=== PATIENT | female | born 1970 | race Caucasian/White ===

== ENCOUNTER → 2017-10-15 09:21 | Outpatient (CLI) | payer OTHER, SELFPAY ==
[2017-10-15 11:25] LABS: Free T4, Direct Thyroxine 1.87 ng/dL (0.78-2.19)
[2017-10-15 11:38] LABS: Thyroid Stimulating Hormone 0.39 uIU/mL (0.47-4.68)
[2017-10-18 15:38] LABS: Triiodothyronine T3 Total 95 ng/dL (76-181)
== END ==
PROVIDERS: PCP Family Medicine; Visit Provider Physician Assistant
DX: L65.9 Nonscarring hair loss, unspecified (principal)
CPT/HCPCS: 36415; 84439; 84443; 84480

== ENCOUNTER → 2018-04-07 07:01 | Outpatient (CLI) | payer OTHER, SELFPAY ==
[2018-04-07 08:24] LABS: Alanine Aminotransferase 24 IU/L (9-52); Aspartate Aminotransferase 21 IU/L (14-36)
[2018-04-07 09:05] LABS: Thyroid Stimulating Hormone 2.68 uIU/mL (0.47-4.68)
== END ==
PROVIDERS: PCP Family Medicine; Visit Provider Family Medicine
DX: R74.8 Abnormal levels of other serum enzymes (principal); R79.89 Other specified abnormal findings of blood chemistry
CPT/HCPCS: 36415; 84443; 84450; 84460

== ENCOUNTER 2018-10-21 21:53 | Emergency (ER) | payer OTHER, SELFPAY ==
[2018-10-21] VITALS (8 sets, daily range): BP systolic 98–117; BP diastolic 61–86; PULSE 56–86; RESP 12–24; TEMP 36.6; O2SAT 96–100; BMI 32.9
--- NOTE | 2018-10-21 21:55 | DI.RAD.S_ITS ---
PROCEDURE: XR WRIST RT MIN 3V INDICATIONS: fall, pain, obvious deformity TECHNIQUE: 4 views of the wrist were acquired. COMPARISON: None. FINDINGS: Bones: There is a transverse fracture identified involving the distal right radial metaphysis with possible intra-articular extension. Dorsal angulation and mild impaction of the distal fracture fragment is present. There is also an ulnar styloid process fracture. No additional fractures are evident. No suspicious osseous lesions or dislocations are identified. Soft tissues: No suspicious soft tissue calcifications. IMPRESSION: 1. Mildly impacted and dorsally angulated distal right radial metaphyseal fracture. 2. Ulnar styloid process fracture. Dictated by: Nate Reyes M.D. on 10/22/2018 at 6:41 Approved by: Nate Reyes M.D. on 10/22/2018 at 6:43
--- NOTE | 2018-10-21 23:34 | DI.RAD.S_ITS ---
PROCEDURE: XR WRIST RT 2V INDICATIONS: post reduction / splint TECHNIQUE: 2 views of the wrist were acquired. COMPARISON: [facility], CR, XR WRIST RT MIN 3V, 10/21/2018, 22:06. FINDINGS: There continues to be a transverse fracture through the distal radial metaphysis with probable intra-articular extension and mild dorsal angulation of the distal fracture fragment. The ulnar styloid process fracture is unchanged. No new fractures are evident. Interval placement of an overlying cast is noted. No suspicious osseous lesions are evident. The overlying soft tissues are not well evaluated. IMPRESSION: Unchanged alignment of the distal radius and ulna fractures. Dictated by: Nate Reyes M.D. on 10/22/2018 at 6:39 Approved by: Nate Reyes M.D. on 10/22/2018 at 6:41
--- NOTE | 2018-10-21 23:47 | PC.NURSE ---
Cap refill of right hand 3 seconds,same as left hand
[2018-10-21] MEDS: PROPOFOL 200 MG/20 ML VIAL 140 MG IV (23:51)
[2018-10-21] MEDS: HYDROMORPHONE 1 MG INJ 0.5 MG IV (23:56)
[2018-10-22 00:10] VITALS: BP 112/72; PULSE 74; RESP 15; O2SAT 98
[2018-10-22] MEDS: HYDROCODONE/ACET 5/325 PREPACK 1 BOTTLE MISC (00:33)
--- NOTE | 2018-10-22 00:47 | PC.NURSE ---
Provider inspected and approved sugar tong with beckie wrap. cap refill 3 sec equal to left finger cap refill. pos cms.
[2018-10-22 00:49] VITALS: BP 135/59; PULSE 80; RESP 16; O2SAT 96
--- NOTE | 2018-10-22 00:50 | ED_ITS ---
HPI - Extremity Injury (Upper) General Chief Complaint: Extremity Injury, Upper Stated Complaint: Rt Deformed Forearm Time Seen by Provider: 10/21/18 21:55 Source: patient, family and EMS Mode of arrival: EMS Limitations: no limitations History of Present Illness HPI narrative: 47-year-old female nonsmoker with history of hypothyroid presents with right wrist pain and obvious deformity after falling off of 1 of her children's hoverboard. She denies any head neck or back pain. She landed on an outstretched right wrist and has obvious deformity but denies numbness, tingling or weakness. Her pain is worse with range of motion. Patient's pain is well controlled, she was transported by EMS and has been given Fentanyl. MD complaint: injury to: right Onset (ago): minute(s) Other injuries: none Handedness: right Place: home Severity: moderate Relieving factors: rest Exacerbating factors: movement of extremity Context: fall Associated symptoms: denies other symptoms Treatments prior to arrival: splint Related Data Previous Rx's Medication Instructions Recorded diclofenac sodium 50 mg 50 mg PO BID #180 tab 09/06/18 tablet,delayed release levothyroxine 100 mcg capsule 100 mcg PO DAILY #90 cap 09/06/18 methocarbamol 750 mg tablet 750 mg PO BID #60 tab 09/19/18 hydrocodone-acetaminophen 1 tab PO Q4-6H PRN #20 tab 10/22/18 Allergies Allergy/AdvReac Type Severity Reaction Status Date / Time minocycline Allergy Intermediate Verified 10/21/18 22:05 Iodine and Iodide Containing Allergy Unknown RASH Verified 10/21/18 22:05 Produc Review of Systems Constitutional Denies chills, Denies fever(s), Denies lethargy and Denies weakness Eyes Denies change in vision, Denies eye discharge, Denies irritation and Denies loss of vision ENT Ears, Nose, Mouth, and Throat: Denies change in voice, Denies neck pain and Denies sore throat Cardiovascular Denies chest pain, Denies irregular heart rhythm, Denies lightheadedness, Denies palpitations, Denies dyspnea, Denies dyspnea on exertion and Denies orthopnea Respiratory Denies cough, Denies dyspnea, Denies dyspnea on exertion and Denies wheezing Gastrointestinal Gastrointestinal: Denies abdominal pain, Denies change in bowel habits, Denies diarrhea, Denies nausea and Denies vomiting Genitourinary Denies hematuria, Denies flank pain, Denies urinary incontinence and Denies urinary urgency Musculoskeletal Reports joint swelling, Reports limited range of motion and Denies neck pain Integumentary/Breasts Denies pruritus, Denies erythema, Denies rash and Denies wounds Neurologic Denies confusion, Denies loss of vision and Denies weakness Psychiatric Denies anxiety, Denies confusion, Denies depression, Denies homicidal ideation and Denies suicidal ideation Endocrine Denies palpitations Hematologic/Lymphatic Denies easy bruising Allergic/Immunologic Denies wheezing PFSH Social History Smoking Status: Former smoker alcohol intake: current (occasional ) Social History Smoking Status: Former smoker alcohol intake: current (occasional ) Exam Narrative Exam Narrative: GENERAL: 47-year-old female appears younger than stated age, tearful and in pain HEAD: Atraumatic. Normocephalic. No temporal or scalp tenderness. EYES: Pupils equal round and reactive. Extraocular motions intact. No scleral icterus. No injection or drainage. ENT: Nose without bleeding, purulent drainage or septal hematoma. Throat without erythema, tonsillar hypertrophy or exudate. Uvula midline. Airway patent. NECK: Trachea midline. No JVD or lymphadenopathy. Supple, nontender, no meningeal signs. CARDIOVASCULAR: Regular rate and rhythm without murmurs, gallops, or rubs. RESPIRATORY: Clear to auscultation. Breath sounds equal bilaterally. No wheezes, rales, or rhonchi. GASTROINTESTINAL: Abdomen soft, non-tender, nondistended. No hepato- splenomegaly, or palpable masses. No guarding. EXTREMITIES: Obvious deformity. Closed, isolated and neurovascularly intact. Decreased range of motion secondary to pain over the distal radius BACK: Nontender without deformity or crepitance. No flank tenderness. NEURO: AOx3. SKIN: No rash or erythema. Initial Vital Signs Initial Vital Signs: Vital Signs Temperature 97.8 F 10/21/18 22:00 Pulse Rate 56 L 10/21/18 22:00 Respiratory Rate 14 10/21/18 22:00 Blood Pressure 103/67 10/21/18 22:00 Pulse Oximetry 99 10/21/18 22:00 Procedures Orthopedic Fracture Reduction Fracture #1: Time Out Performed: Yes Side: right Fracture Reduction Location: radius Analgesia: procedural sedation Technique: direct manipulation and traction/counter-traction Post Reduction X-rays Demonstrate: acceptable reduction Post-reduction neuro exam: intact Post-reduction vascular exam: intact Splint Applied: Yes Patient Tolerated Procedure: Well Orthopedic Splinting/Casting Injury #1: Side: right Upper Extremity Injury Location: wrist Upper Extremity Immobilizer: sling/shoulder immobilizer and sugar tong splint Post splinting neuro exam: intact Post splinting vascular exam: intact Placed by: Provider Procedural Sedation Patient Age: Patient is 5yrs or older Consent signed: Yes Time out performed: Yes Indication: fracture/dislocation reduction ASA Class: I Mallampati Airway Classification: Class II Preparation: school lunch monitor applied, pulse oximeter, capnometry used, supplemental O2 applied, suction/airway equipment at bedside and IV secured IV Propofol dose (mg): 140 Intraservice time/total sedation time (min): 10 ED Sedation Level: Moderate (Concious) Patient Tolerated Procedure: Well Complications: none Course Orders Ordered: ED Orders 10/21/18 21:55 XR wrist RT min 3V Stat 10/21/18 23:34 XR wrist RT 2V Stat Discontinued Medications Hydrocodone Bitart/Acetaminophen (Vicodin Prepack) 1 bottle MISC SEEINSTR ONE Stop: 10/21/18 23:36 Last Admin: 10/22/18 00:33 Dose: 1 bottle Hydromorphone HCl (Dilaudid) 0.5 mg IV NOW ONE Stop: 10/21/18 23:52 Last Admin: 10/21/18 23:56 Dose: 0.5 mg Propofol (Diprivan) 140 mg IV NOW ONE Stop: 10/21/18 23:49 Last Admin: 10/21/18 23:51 Dose: 140 mg Vital Signs - 8 hr 10/21/18 22:00 10/21/18 23:10 10/21/18 23:26 Temperature 97.8 F Pulse Rate 56 L 76 74 Respiratory Rate 14 24 24 Blood Pressure 103/67 Blood Pressure [Left Arm] 107/61 116/68 Pulse Oximetry 99 100 100 10/21/18 23:30 10/21/18 23:35 10/21/18 23:45 Temperature Pulse Rate 71 70 58 L Respiratory Rate 18 19 15 Blood Pressure Blood Pressure [Left Arm] 117/86 107/67 98/63 Pulse Oximetry 100 100 100 10/21/18 23:50 10/21/18 23:55 10/22/18 00:10 Temperature Pulse Rate 61 74 74 Respiratory Rate 22 12 15 Blood Pressure Blood Pressure [Left Arm] 115/66 113/76 112/72 Pulse Oximetry 98 96 98 MDM - Extremity Injury (Upper) Imaging Data Right Wrist Xray: Attestation: I personally reviewed and interpreted this imaging study as follows: My impression: comminuted distal radius fracture with shortening and dorsal angulation Discharge Plan Departure Patient Disposition: Home Clinical Impression: Fracture of wrist Qualifiers: Encounter type: initial encounter Fracture type: closed Laterality: right Qualified Code(s): S62.101A - Fracture of unspecified carpal bone, right wrist, initial encounter for closed fracture Instructions: DI for Distal Radius Fracture Activity Restrictions/Additional Instructions: *You have been diagnosed with [distal radius fracture ] *What to do: *Take medications as directed *Follow up with your orthopedist in 2-3 days, call for an appointment. Let them know you were seen in the Emergency Department and that we ask that you be seen in follow up *Return to ER if you should have any new, worsening or concerning symptoms Prescriptions: New hydrocodone-acetaminophen 5-325 mg tablet 1 tab PO Q4-6H PRN (Reason: pain) Qty: 20 RF: 0 No Action diclofenac sodium 50 mg tablet,delayed release (DR/EC) 50 mg PO BID Qty: 180 RF: 1 levothyroxine 100 mcg capsule 100 mcg PO DAILY Qty: 90 RF: 1 methocarbamol [Robaxin-750] 750 mg tablet 750 mg PO BID Qty: 60 RF: 1 Referrals: Stew Stauffer MD [Physician] -
== END 2018-10-22 00:50 | disposition home or self-care (01) ==
PROVIDERS: Emergency Provider Emergency Medicine
DX: S62.101A Fracture of unspecified carpal bone, right wrist, initial encounter for closed fracture (principal); W19.XXXA Unspecified fall, initial encounter
CPT/HCPCS: 25605; 29125; 73100; 73110; 94770; 96374; 99152; 99153; 99283; 99285; J1170; J2704